=== PATIENT | female | born 2000 | race African-American/Black ===

== ENCOUNTER 2021-04-06 11:20 | Inpatient (IN) | payer OTHER, SELFPAY ==
--- NOTE | 2021-04-06 | ECG_ITS ---
Test Reason : ON ANTIPSYCHOTICS Blood Pressure : / mmHG Vent. Rate : 076 BPM Atrial Rate : 076 BPM P-R Int : 136 ms QRS Dur : 084 ms QT Int : 350 ms P-R-T Axes : -47 013 019 degrees QTc Int : 393 ms Unusual P axis, possible ectopic atrial rhythm Abnormal ECG No previous ECGs available Referred By: Louis Ohara Electronically Signed By:Edward Malhotra
--- NOTE | ~2021-04-06 | XR_ITS ---
EXAMINATION: XR ABDOMEN KUB CLINICAL INDICATION: Constipation COMPARISON: None TECHNIQUE: AP view of the abdomen. FINDINGS: The bowel gas pattern is normal with no evidence of ileus or obstruction. No unusual soft tissue calcifications are noted. The bones are unremarkable. There is moderate stool burden seen within the ascending and transverse colon as well as within the rectum. Psoas margins are intact. XR/XR KUB IMPRESSION: Moderate stool burden with no evidence of ileus or obstruction.
[2021-04-06 12:21] VITALS: BP 129/80; PULSE 84; RESP 18; TEMP 36.4; O2SAT 97
[2021-04-06 13:33] LABS: HCG Quantitative < 2 mIU/mL
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
[2021-04-06 18:00] VITALS: BP 123/82; PULSE 96; TEMP 36.6; O2SAT 100
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
[2021-04-07 06:00] VITALS: BP 122/68; PULSE 77; RESP 16; TEMP 36.2; O2SAT 100
[2021-04-07 08:13] LABS: MANUAL DIFF FLAG NO
[2021-04-07 08:18] LABS: Basophils Absolute Auto 0.1 X10*3/uL (0.0-0.2); Basophils Percent Auto 0.7 % (0-2); Eosinophils Absolute Auto 0.2 X10*3/uL (0.0-0.4); Eosinophils Percent Auto 1.7 % (0-4); Hematocrit 40.1 % (37-47); Hemoglobin 13.4 g/dl (12.0-16.0); Imm Gran Abs Auto 0.03 X10*3/uL (0.00-0.03); Imm Gran Pct Auto 0.3 % (0.0-0.4); Lymphocytes Absolute Auto 2.2 X10*3/uL (1.2-4.9); Lymphocytes Percent Auto 24.5 % (20-40); Mean Corpuscular HGB Conc 33.4 g/dl (31.0-35.0); Mean Corpuscular Hemoglobin 30.9 pg (27.0-33.0); Mean Corpuscular Volume 92.6 fL (80-98); Mean Platelet Volume 10.6 fL (9.4-12.3); Monocytes Absolute Auto 0.6 X10*3/uL (0.1-1.2); Monocytes Percent Auto 7.1 % (2-11); Neutrophils Absolute Auto 5.9 X10*3/uL (2.0-8.3); Neutrophils Percent Auto 65.7 % (45-73); Platelet Count 278 X10*3/uL (160-400); Red Blood Count 4.33 X10*6/uL (4.20-5.50); Red Cell Distribution Width 11.7 % (11.0-16.0)
[2021-04-07 08:46] LABS: Alanine Aminotransferase 7 U/L (0-31); Albumin Level 4.7 g/dL (3.5-5.0); Alkaline Phosphatase 78 U/L (39-117); Anion Gap 12 (12-20); Aspartate Amino Transferase 11 U/L (5-31); Bilirubin Total 0.6 mg/dL (0.0-1.0); Blood Urea Nitrogen 7 mg/dL (9-16); Calcium 10.2 mg/dL (8.4-10.2); Carbon Dioxide 26 mmol/L (22-29); Chloride 105 mmol/L (96-108); Cholesterol 167 mg/dL; Estimated Glomerular Filt Rate > 60; Glucose Fasting 95 mg/dL (60-99); HDL Cholesterol 42 mg/dL; LDL Cholesterol Calculated 117 mg/dl; Potassium 4.2 mmol/L (3.3-5.1); Sodium 139 mmol/L (135-145); Total Protein 8.3 g/dL (6.5-8.0); Triglycerides 42 mg/dL
[2021-04-07 09:09] LABS: Free T4 (Free Thyroxine) 1.28 ng/dL (0.71-1.85); Thyroid Stimulating Hormone 1.35 uIU/mL (0.32-4.0)
--- NOTE | 2021-04-07 12:04 | P.PNPSI_ITS ---
Subjective Subjective Date of Service: 04/07/21 Reason For Visit: Paranoia Agitation Interim History: pt amenable to come to interview room. insists on leaving, alleges MD is misrepresenting her rights when she is informed about need for 3- day notice. suggests she would benefit from medication for paranoia. pt fixated on issue of discharge and ultimately unilaterally ends the interview by walking out of the room and not returning. per staff, is not endorsing SI/HI, but does have delusions. today reported AH of a mother who was . slept well overnight. Mental Status Exam Mental Status Exam Narrative: appropriately dressed and groomed. not cooperative with interview. PMA of standing during interview and then summarily walking out. speech rapid, loud, terse and decr in amount. thoughts focused on discharge and with either inaccurate or delusional recall of information presented to her. affect labile and hyper-intense. no SI/HI/AVH expressed. Diagnostics Vital Signs (24Hr): Vital Signs - 24 hr 04/06/21 12:21 04/06/21 18:00 04/07/21 06:00 Temperature 97.5 F 97.9 F 97.2 F Pulse Rate 84 96 77 Respiratory Rate 18 16 Blood Pressure 129/80 123/82 122/68 Pulse Oximetry 97 100 100 Labs Results: 04/07/21 08:09 04/07/21 08:09 Labs: Laboratory Results - last 48 hr 04/06/21 04/07/21 04/07/21 12:43 08:09 08:09 WBC 9.0 RBC 4.33 Hgb 13.4 Hct 40.1 MCV 92.6 MCH 30.9 MCHC 33.4 RDW 11.7 Plt Count 278 MPV 10.6 Immature Gran % (Auto) 0.3 Neut % (Auto) 65.7 Lymph % (Auto) 24.5 [place] % (Auto) 7.1 Eos % (Auto) 1.7 Baso % (Auto) 0.7 Lymph # (Auto) 2.2 [place] # (Auto) 0.6 Eos # (Auto) 0.2 Baso # (Auto) 0.1 Abs Immat Gran (auto) 0.03 Absolute Neuts (auto) 5.9 Absolute Nucleated RBC 0.000 Nucleated RBC % (auto) 0.0 Sodium 139 Potassium 4.2 Chloride 105 Carbon Dioxide 26 Anion Gap 12 BUN 7 L Creatinine 0.71 Estim Creat Clear Calc TNP Estimated GFR > 60 Fasting Glucose 95 Calcium 10.2 Total Bilirubin 0.6 AST 11 ALT 7 Alkaline Phosphatase 78 Total Protein 8.3 H Albumin 4.7 Triglycerides 42 Cholesterol 167 LDL Cholesterol, Calc 117 HDL Cholesterol 42 TSH 1.35 Free T4 1.28 Beta HCG, Quant < 2 Medications Medications Current Medications Generic Name Dose Route Start Last Admin Trade Name Freq PRN Reason Stop Dose Admin Acetaminophen 650 mg 04/06/21 12:00 Acetaminophen 325 Mg Tablet PO Q6H PRN Headache/Pain Mild Scale (1-3) Al Hydroxide/Mg Hydroxide 30 ml 04/06/21 12:00 Magnesium Hydrox/Alum Hydrox 30 Ml Oral.Susp PO Q6H PRN Heartburn/Nausea Aripiprazole 5 mg 04/07/21 21:00 Aripiprazole 5 Mg Tablet PO BEDTIME LOBO Hydroxyzine HCl 25 mg 04/06/21 12:00 Hydroxyzine Hcl 25 Mg Tablet PO BEDTIME PRN Anxiety Magnesium Hydroxide 30 ml 04/06/21 12:00 Milk Of Magnesia 30 Ml Oral.Susp PO DAILY PRN Constipation Risperidone 0.5 mg 04/06/21 12:16 Risperidone 0.5 Mg Tablet PO Q4H PRN Psychosis Trazodone HCl 50 mg 04/06/21 12:00 Trazodone Hcl 50 Mg Tablet PO BEDTIME PRN Insomnia Allergies Allergies Allergy/AdvReac Type Severity Reaction Status Date / Time No Known Allergies Allergy Unverified 05/20/20 19:53 [No Known Allergies*] Assessment & Plan Assessment & Plan (1) Psychotic disorder with hallucinations: Status: Acute Code(s): F06.0 - Psychotic disorder with hallucinations due to known physiological condition Assessment and Plan: trial of abilify, if pt willing to take. risperidone PRNs prescribed. (2) Post traumatic stress disorder (PTSD): Status: Acute Code(s): F43.10 - Post-traumatic stress disorder, unspecified Assessment and Plan: as for psychosis, presently. once no longer psychotic may be able to collect Hx and address PTSD from a more informed perspective. Assessment and Plan: Patient appears to have had panic acute psychotic episode unclear what her baseline as patient has been psychiatrically hospitalized previously and I did unable to give a clear history at this time. Reportedly the patient's more recent baseline had been more stable unclear what her cognitive and psychiatric baseline is. She has not recently been on psychiatric medications she states she does admit to chronic flashbacks nightmares. Was unable to give a medication history need to clarify patient's history was there recent trauma that trigger psychotic episode episode question psychotic depression question bi polar disorder with psychotic features. Greater than 50% of the session was spent on counseling and/or coordination of care Reason for contiued inpatient stay Substantial Risk for: inability to function and rapid decompensation
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
[2021-04-07 18:30] VITALS: BP 155/92; PULSE 84; RESP 16; TEMP 36.8; O2SAT 97
[2021-04-08 08:00] VITALS: BP 122/78; PULSE 76; RESP 18; TEMP 533.3; TEMP 992; O2SAT 99
--- NOTE | 2021-04-08 13:20 | HO.PSYCHPN ---
Subjective Subjective Date of Service: 04/08/21 Reason For Visit: Paranoia Agitation Interim History: pt was found in her room late morning. she was calm and cooperative in discussion, but she adamantly denied the need for medication or hospitalization. MD highly encouraged her to take medication, explaining her recent paranoia Hx and that per collateral from her mother she is not herself. pt did not appear moved by MDs suggestions or observations. per staff, pt had episode of yelling, agitation yesterday afternoon. head-banging around 5:30 pm. calling police, pounding on unit doors. threatening to have staff arrested. refusing medication. parents came to pick her up as that is what she had told them was happening. no other notable behaviors, asking for discharge. Mental Status Exam Mental Status Exam Narrative: appropriately dressed and groomed. superficially cooperative with interview. no PMA/PMR. speech rapid, nml loudness. terse and decr in amount. thoughts focused on discharge and her perception she does not need psychiatric medication. affect non-labile and hyper-intense. no SI/HI/AVH expressed. Diagnostics Vital Signs (24Hr): Vital Signs - 24 hr 04/07/21 18:30 04/08/21 08:00 Temperature 98.3 F 992 F H Pulse Rate 84 76 Respiratory Rate 16 18 Blood Pressure 155/92 H 122/78 Pulse Oximetry 97 99 Labs Results: 04/07/21 08:09 04/07/21 08:09 Labs: Laboratory Results - last 48 hr 04/06/21 04/07/21 04/07/21 12:43 08:09 08:09 WBC 9.0 RBC 4.33 Hgb 13.4 Hct 40.1 MCV 92.6 MCH 30.9 MCHC 33.4 RDW 11.7 Plt Count 278 MPV 10.6 Immature Gran % (Auto) 0.3 Neut % (Auto) 65.7 Lymph % (Auto) 24.5 [place] % (Auto) 7.1 Eos % (Auto) 1.7 Baso % (Auto) 0.7 Lymph # (Auto) 2.2 [place] # (Auto) 0.6 Eos # (Auto) 0.2 Baso # (Auto) 0.1 Abs Immat Gran (auto) 0.03 Absolute Neuts (auto) 5.9 Absolute Nucleated RBC 0.000 Nucleated RBC % (auto) 0.0 Sodium 139 Potassium 4.2 Chloride 105 Carbon Dioxide 26 Anion Gap 12 BUN 7 L Creatinine 0.71 Estim Creat Clear Calc TNP Estimated GFR > 60 Fasting Glucose 95 Calcium 10.2 Total Bilirubin 0.6 AST 11 ALT 7 Alkaline Phosphatase 78 Total Protein 8.3 H Albumin 4.7 Triglycerides 42 Cholesterol 167 LDL Cholesterol, Calc 117 HDL Cholesterol 42 TSH 1.35 Free T4 1.28 Beta HCG, Quant < 2 Medications Medications Current Medications Generic Name Dose Route Start Last Admin Trade Name Freq PRN Reason Stop Dose Admin Acetaminophen 650 mg 04/06/21 12:00 Acetaminophen 325 Mg Tablet PO Q6H PRN Headache/Pain Mild Scale (1-3) Al Hydroxide/Mg Hydroxide 30 ml 04/06/21 12:00 Magnesium Hydrox/Alum Hydrox 30 Ml Oral.Susp PO Q6H PRN Heartburn/Nausea Aripiprazole 5 mg 04/07/21 21:00 04/07/21 20:59 Aripiprazole 5 Mg Tablet PO Not Given BEDTIME LOBO Hydroxyzine HCl 25 mg 04/06/21 12:00 Hydroxyzine Hcl 25 Mg Tablet PO BEDTIME PRN Anxiety Magnesium Hydroxide 30 ml 04/06/21 12:00 Milk Of Magnesia 30 Ml Oral.Susp PO DAILY PRN Constipation Risperidone 0.5 mg 04/06/21 12:16 Risperidone 0.5 Mg Tablet PO Q4H PRN Psychosis Trazodone HCl 50 mg 04/06/21 12:00 Trazodone Hcl 50 Mg Tablet PO BEDTIME PRN Insomnia Allergies Allergies Allergy/AdvReac Type Severity Reaction Status Date / Time No Known Allergies Allergy Unverified 05/20/20 19:53 [No Known Allergies*] Assessment & Plan Assessment & Plan (1) Psychotic disorder with hallucinations: Status: Acute Code(s): F06.0 - Psychotic disorder with hallucinations due to known physiological condition Assessment and Plan: trial of abilify, if pt willing to take.? risperidone PRNs prescribed. (2) Post traumatic stress disorder (PTSD): Status: Acute Code(s): F43.10 - Post-traumatic stress disorder, unspecified Assessment and Plan: as for psychosis, presently.? once no longer psychotic may be able to collect Hx and address PTSD from a more informed perspective. Greater than 50% of the session was spent on counseling and/or coordination of care Reason for contiued inpatient stay Substantial Risk for: rapid decompensation
[2021-04-08 18:00] VITALS: BP 135/82; PULSE 78; TEMP 36.6; O2SAT 100
[2021-04-08] MEDS: risperiDONE 0.5 MG TABLET PO (21:51)
[2021-04-09 08:00] VITALS: BP 124/85; PULSE 88; RESP 16; TEMP 36.1; O2SAT 99
--- NOTE | 2021-04-09 14:51 | HO.PSYCHPN ---
Subjective Subjective Date of Service: 04/09/21 Reason For Visit: Paranoia Agitation Interim History: found found lying in bed awake mid-morning. no questions or complaints. states she took risperidone last night to help her fall asleep. offers to schedule her risperidone at bedtime for that purpose and she agrees. per staff, pt is brighter and more clear. still paranoid and delusional, however. slept well overnight. took risperidone PRN at HS. Mental Status Exam Mental Status Exam Narrative: appropriately dressed and groomed. cooperative with interview. no PMA/PMR. speech rapid, nml loudness. terse and decr in amount. thoughts linear and logical. affect non-labile and normo-intense. no SI/HI/AVH expressed. Diagnostics Vital Signs (24Hr): Vital Signs - 24 hr 04/08/21 18:00 04/09/21 08:00 Temperature 98 F 97 F Pulse Rate 78 88 Respiratory Rate 16 Blood Pressure 135/82 124/85 Pulse Oximetry 100 99 Labs Results: 04/07/21 08:09 04/07/21 08:09 Medications Medications Current Medications Generic Name Dose Route Start Last Admin Trade Name Freq PRN Reason Stop Dose Admin Acetaminophen 650 mg 04/06/21 12:00 Acetaminophen 325 Mg Tablet PO Q6H PRN Headache/Pain Mild Scale (1-3) Al Hydroxide/Mg Hydroxide 30 ml 04/06/21 12:00 Magnesium Hydrox/Alum Hydrox 30 Ml Oral.Susp PO Q6H PRN Heartburn/Nausea Aripiprazole 5 mg 04/07/21 21:00 04/08/21 22:45 Aripiprazole 5 Mg Tablet PO Not Given BEDTIME LOBO Hydroxyzine HCl 25 mg 04/06/21 12:00 Hydroxyzine Hcl 25 Mg Tablet PO BEDTIME PRN Anxiety Magnesium Hydroxide 30 ml 04/06/21 12:00 Milk Of Magnesia 30 Ml Oral.Susp PO DAILY PRN Constipation Melatonin 6 mg 04/08/21 22:43 Melatonin 3 Mg Tablet PO BEDTIME PRN Sleep Risperidone 0.5 mg 04/06/21 12:16 04/08/21 21:51 Risperidone 0.5 Mg Tablet PO 0.5 mg Q4H PRN Administration Psychosis Trazodone HCl 50 mg 04/06/21 12:00 Trazodone Hcl 50 Mg Tablet PO BEDTIME PRN Insomnia Allergies Allergies Allergy/AdvReac Type Severity Reaction Status Date / Time No Known Allergies Allergy Unverified 05/20/20 19:53 [No Known Allergies*] Assessment & Plan Assessment & Plan (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 risperidone PRNs prescribed at admission but pt did not take until 04/08 @HS. scheduled dose of 1 mg prescribed for HS as of 04/09.. (2) Post traumatic stress disorder (PTSD): Status: Acute Code(s): F43.10 - Post-traumatic stress disorder, unspecified Assessment and Plan: as for psychosis, presently.? once no longer psychotic may be able to collect Hx and address PTSD from a more informed perspective. Greater than 50% of the session was spent on counseling and/or coordination of care Reason for contiued inpatient stay Substantial Risk for: inability to function and rapid decompensation
[2021-04-09 20:10] VITALS: BP 140/75; PULSE 84; TEMP 36.2; O2SAT 100
[2021-04-09] MEDS: Melatonin 3 MG TABLET 6 MG PO (21:52)
[2021-04-09] MEDS: risperiDONE 1 MG TABLET PO (21:57)
[2021-04-10 08:10] VITALS: BP 124/74; PULSE 91; RESP 16; TEMP 36.4; O2SAT 99
--- NOTE | 2021-04-10 14:14 | HO.PSYCHPN ---
Subjective Subjective Date of Service: 04/10/21 Reason For Visit: Paranoia Agitation Interim History: pt found seated in milieu, calm and cooperative. states she is fine and her mod is 5 out of 10. states she slept well. she has no questions or concerns for MD. MD notes she took risperidone last night, which she acknowledges, stating she also took melatonin. MD [facility], and she agrees. per staff, pt paranoid, suspicious of staff. took risperidone at HS last night. Mental Status Exam Mental Status Exam Narrative: appropriately dressed and groomed. cooperative with interview. no PMA/PMR. speech soft, mumbled. terse and decr in amount. thoughts linear and logical. affect non-labile and normo-intense. mood 5 out of 10. no SI/HI/AVH expressed. Diagnostics Vital Signs (24Hr): Vital Signs - 24 hr 04/09/21 20:10 04/10/21 08:10 Temperature 97.2 F 97.6 F Pulse Rate 84 91 Respiratory Rate 16 Blood Pressure 140/75 H 124/74 Pulse Oximetry 100 99 Labs Results: 04/07/21 08:09 04/07/21 08:09 Medications Medications Current Medications Generic Name Dose Route Start Last Admin Trade Name Freq PRN Reason Stop Dose Admin Acetaminophen 650 mg 04/06/21 12:00 Acetaminophen 325 Mg Tablet PO Q6H PRN Headache/Pain Mild Scale (1-3) Al Hydroxide/Mg Hydroxide 30 ml 04/06/21 12:00 Magnesium Hydrox/Alum Hydrox 30 Ml Oral.Susp PO Q6H PRN Heartburn/Nausea Hydroxyzine HCl 25 mg 04/06/21 12:00 Hydroxyzine Hcl 25 Mg Tablet PO BEDTIME PRN Anxiety Magnesium Hydroxide 30 ml 04/06/21 12:00 Milk Of Magnesia 30 Ml Oral.Susp PO DAILY PRN Constipation Melatonin 6 mg 04/08/21 22:43 04/09/21 21:52 Melatonin 3 Mg Tablet PO 6 mg BEDTIME PRN Administration Sleep Risperidone 0.5 mg 04/06/21 12:16 04/08/21 21:51 Risperidone 0.5 Mg Tablet PO 0.5 mg Q4H PRN Administration Psychosis Risperidone 1 mg 04/09/21 21:00 04/09/21 21:57 Risperidone 1 Mg Tablet PO 1 mg BEDTIME LOBO Administration Trazodone HCl 50 mg 04/06/21 12:00 Trazodone Hcl 50 Mg Tablet PO BEDTIME PRN Insomnia Allergies Allergies Allergy/AdvReac Type Severity Reaction Status Date / Time No Known Allergies Allergy Unverified 05/20/20 19:53 [No Known Allergies*] Assessment & Plan Assessment & Plan (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 risperidone PRNs prescribed at admission but pt did not take until 04/08 @[facility]. scheduled dose of 1 mg prescribed for HS as of 04/09, which pt took. abilify DCed 04/10 as pt had been refusing ever since it was offered first. (2) Post traumatic stress disorder (PTSD): Status: Acute Code(s): F43.10 - Post-traumatic stress disorder, unspecified Assessment and Plan: as for psychosis, presently.? once no longer psychotic may be able to collect Hx and address PTSD from a more informed perspective. Greater than 50% of the session was spent on counseling and/or coordination of care Reason for contiued inpatient stay Substantial Risk for: inability to function and rapid decompensation
[2021-04-10 20:25] VITALS: BP 140/80; PULSE 75; RESP 18; TEMP 36.7; O2SAT 93
[2021-04-10] MEDS: Melatonin 3 MG TABLET 6 MG PO (20:30)
[2021-04-10] MEDS: risperiDONE 1 MG TABLET PO (20:30)
[2021-04-11 06:00] VITALS: BP 137/69; PULSE 112; RESP 18; TEMP 36.8; O2SAT 98
--- NOTE | 2021-04-11 10:00 | HO.PSYCHPN ---
Subjective Subjective Date of Service: 04/12/21 Reason For Visit: Paranoia Agitation Interim History: Pt very anxious and overwhelmed, reports she is in labor, having strong contractions, very upset about having implanon on left arm for contraception while being - despite telling her tests are negative. Pt reports having several miscarriages while in the unit. She reports she has seen fetus coming out of her feces. she reports slightly better sleep with risperidone. Medication Compliance: Intermittent Side effects from medications: No Review of Systems Review of Systems Yes all other systems are reviewed and are negative Diagnostics Vital Signs (24Hr): Vital Signs - 24 hr 04/11/21 18:00 04/12/21 08:00 Temperature 97.4 F 97.2 F Pulse Rate 110 H 105 H Respiratory Rate 16 20 Blood Pressure 125/82 124/69 Pulse Oximetry 100 100 Labs Results: 04/07/21 08:09 04/07/21 08:09 Medications Medications Current Medications Generic Name Dose Route Start Last Admin Trade Name Freq PRN Reason Stop Dose Admin Acetaminophen 650 mg 04/06/21 12:00 Acetaminophen 325 Mg Tablet PO Q6H PRN Headache/Pain Mild Scale (1-3) Al Hydroxide/Mg Hydroxide 30 ml 04/06/21 12:00 Magnesium Hydrox/Alum Hydrox 30 Ml Oral.Susp PO Q6H PRN Heartburn/Nausea Hydroxyzine HCl 25 mg 04/06/21 12:00 Hydroxyzine Hcl 25 Mg Tablet PO BEDTIME PRN Anxiety Magnesium Hydroxide 30 ml 04/06/21 12:00 Milk Of Magnesia 30 Ml Oral.Susp PO DAILY PRN Constipation Melatonin 6 mg 04/08/21 22:43 04/11/21 21:25 Melatonin 3 Mg Tablet PO 6 mg BEDTIME PRN Administration Sleep Risperidone 0.5 mg 04/06/21 12:16 04/08/21 21:51 Risperidone 0.5 Mg Tablet PO 0.5 mg Q4H PRN Administration Psychosis Risperidone 1 mg 04/09/21 21:00 04/11/21 21:25 Risperidone 1 Mg Tablet PO 1 mg BEDTIME LOBO Administration Trazodone HCl 50 mg 04/06/21 12:00 Trazodone Hcl 50 Mg Tablet PO BEDTIME PRN Insomnia Allergies Allergies Allergy/AdvReac Type Severity Reaction Status Date / Time No Known Allergies Allergy Unverified 05/20/20 19:53 [No Known Allergies*] Assessment & Plan Assessment & Plan (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 risperidone PRNs prescribed at admission but pt did not take until 04/08 @[facility]. scheduled dose of 1 mg prescribed for HS as of 04/09, which pt took. abilify DCed 04/10 as pt had been refusing ever since it was offered first. 1. will increase risperidone to 2mg po qhs. (2) Post traumatic stress disorder (PTSD): Status: Acute Code(s): F43.10 - Post-traumatic stress disorder, unspecified Assessment and Plan: as for psychosis, presently.? once no longer psychotic may be able to collect Hx and address PTSD from a more informed perspective. Greater than 50% of the session was spent on counseling and/or coordination of care Reason for contiued inpatient stay Substantial Risk for: inability to function
[2021-04-11 18:00] VITALS: BP 125/82; PULSE 110; RESP 16; TEMP 36.3; O2SAT 100
[2021-04-11] MEDS: risperiDONE 1 MG TABLET PO (21:25)
[2021-04-11] MEDS: Melatonin 3 MG TABLET 6 MG PO (21:25)
[2021-04-12 08:00] VITALS: BP 124/69; PULSE 105; RESP 20; TEMP 36.2; O2SAT 100
--- NOTE | 2021-04-12 09:44 | HO.PSYCHPN ---
Subjective Subjective Date of Service: 04/15/21 Reason For Visit: Paranoia Agitation Subjective Notes: Conditional Voluntary Interim History: Pt continues to present as very anxious and overwhelmed, reports she is in labor, having strong contractions, very upset about having implanon on left arm for contraception while being - despite telling her tests are negative. Pt did agree to retract 3 day notice as well as to continue taking risperidone at bedtime. Pt reports having several miscarriages while in the unit. She reports she has seen fetus coming out of her feces. she reports slightly better sleep with risperidone. Medication Compliance: Yes Side effects from medications: No Review of Systems Review of Systems Yes all other systems are reviewed and are negative Diagnostics Vital Signs (24Hr): Vital Signs - 24 hr 04/14/21 18:00 Temperature 98.3 F Pulse Rate 87 Respiratory Rate 16 Blood Pressure 111/61 Pulse Oximetry 100 Labs Results: 04/07/21 08:09 04/07/21 08:09 Imaging Radiology Impressions: ITS Impressions KUB X-Ray 04/14/21 16:38 IMPRESSION: Moderate stool burden with no evidence of ileus or obstruction. Medications Medications Current Medications Generic Name Dose Route Start Last Admin Trade Name Freq PRN Reason Stop Dose Admin Acetaminophen 650 mg 04/06/21 12:00 04/12/21 21:33 Acetaminophen 325 Mg Tablet PO 650 mg Q6H PRN Administration Headache/Pain Mild Scale (1-3) Al Hydroxide/Mg Hydroxide 30 ml 04/06/21 12:00 Magnesium Hydrox/Alum Hydrox 30 Ml Oral.Susp PO Q6H PRN Heartburn/Nausea Hydroxyzine HCl 25 mg 04/06/21 12:00 Hydroxyzine Hcl 25 Mg Tablet PO BEDTIME PRN Anxiety Magnesium Hydroxide 30 ml 04/06/21 12:00 04/13/21 15:03 Milk Of Magnesia 30 Ml Oral.Susp PO 30 ml DAILY PRN Administration Constipation Melatonin 6 mg 04/08/21 22:43 04/11/21 21:25 Melatonin 3 Mg Tablet PO 6 mg BEDTIME PRN Administration Sleep Risperidone 0.5 mg 04/06/21 12:16 04/08/21 21:51 Risperidone 0.5 Mg Tablet PO 0.5 mg Q4H PRN Administration Psychosis Risperidone 2 mg 04/12/21 21:00 04/14/21 20:58 Risperidone 2 Mg Tablet PO 2 mg BEDTIME LOBO Administration Trazodone HCl 50 mg 04/06/21 12:00 Trazodone Hcl 50 Mg Tablet PO BEDTIME PRN Insomnia Allergies Allergies Allergy/AdvReac Type Severity Reaction Status Date / Time No Known Allergies Allergy Unverified 05/20/20 19:53 [No Known Allergies*] Assessment & Plan Assessment & Plan (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 risperidone PRNs prescribed at admission but pt did not take until 04/08 @[facility]. scheduled dose of 1 mg prescribed for HS as of 04/09, which pt took. abilify DCed 04/10 as pt had been refusing ever since it was offered first. 1. will increase risperidone to 2mg po qhs. (2) Post traumatic stress disorder (PTSD): Status: Acute Code(s): F43.10 - Post-traumatic stress disorder, unspecified Assessment and Plan: as for psychosis, presently.? once no longer psychotic may be able to collect Hx and address PTSD from a more informed perspective. Greater than 50% of the session was spent on counseling and/or coordination of care Reason for contiued inpatient stay Substantial Risk for: inability to function
[2021-04-12] MEDS: risperiDONE 2 MG TABLET PO (21:30)
[2021-04-12] MEDS: Acetaminophen 325 MG TABLET 650 MG PO (21:33)
[2021-04-12 22:12] VITALS: BP 131/63; PULSE 96; TEMP 36.8; O2SAT 96
--- NOTE | 2021-04-13 01:05 | PC.NURSE ---
RETRACTED 3 DAY NOTICE ON 04/12/21
--- NOTE | 2021-04-13 09:51 | P.PNPSI_ITS ---
Subjective Subjective Date of Service: 04/15/21 Reason For Visit: Paranoia Agitation Interim History: Pt preoccupied with , feels she is not being asked. 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 She does not believe results of tests done in hospital. She has been more visible in unit. Pt reports having several miscarriages while in the unit. She reports she has seen fetus coming out of her feces. she reports slightly better sleep with risperidone. Review of Systems Review of Systems Yes all other systems are reviewed and are negative Mental Status Exam Mental Status Exam Narrative: Appearance: casually groomed, fair hygiene in NAD Behavior:guarded, restless psychomotor:restless Speech:clear, some delayed response at times, monotone, spontaneous Thought process:goal oriented on taking off implanon because she is Thought content:delusions of being , having miscarriages Mood: okay Affect: constricted SI:denies HI:denies VH/AH:VH of seeing fetus Delusions:delusion about being Memory/cog: alert, impaired secondary to psychiatric symptoms. Diagnostics Vital Signs (24Hr): Vital Signs - 24 hr 04/14/21 18:00 Temperature 98.3 F Pulse Rate 87 Respiratory Rate 16 Blood Pressure 111/61 Pulse Oximetry 100 Labs Results: 04/07/21 08:09 04/07/21 08:09 Imaging Radiology Impressions: ITS Impressions KUB X-Ray 04/14/21 16:38 IMPRESSION: Moderate stool burden with no evidence of ileus or obstruction. Medications Medications Current Medications Generic Name Dose Route Start Last Admin Trade Name Gilbertq PRN Reason Stop Dose Admin Acetaminophen 650 mg 04/06/21 12:00 04/12/21 21:33 Acetaminophen 325 Mg Tablet PO 650 mg Q6H PRN Administration Headache/Pain Mild Scale (1-3) Al Hydroxide/Mg Hydroxide 30 ml 04/06/21 12:00 Magnesium Hydrox/Alum Hydrox 30 Ml Oral.Susp PO Q6H PRN Heartburn/Nausea Hydroxyzine HCl 25 mg 04/06/21 12:00 Hydroxyzine Hcl 25 Mg Tablet PO BEDTIME PRN Anxiety Magnesium Hydroxide 30 ml 04/06/21 12:00 04/13/21 15:03 Milk Of Magnesia 30 Ml Oral.Susp PO 30 ml DAILY PRN Administration Constipation Melatonin 6 mg 04/08/21 22:43 04/11/21 21:25 Melatonin 3 Mg Tablet PO 6 mg BEDTIME PRN Administration Sleep Risperidone 0.5 mg 04/06/21 12:16 04/08/21 21:51 Risperidone 0.5 Mg Tablet PO 0.5 mg Q4H PRN Administration Psychosis Risperidone 2 mg 04/12/21 21:00 04/14/21 20:58 Risperidone 2 Mg Tablet PO 2 mg BEDTIME LOBO Administration Trazodone HCl 50 mg 04/06/21 12:00 Trazodone Hcl 50 Mg Tablet PO BEDTIME PRN Insomnia Allergies Allergies Allergy/AdvReac Type Severity Reaction Status Date / Time No Known Allergies Allergy Unverified 05/20/20 19:53 [No Known Allergies*] Assessment & Plan Assessment & Plan (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 risperidone PRNs prescribed at admission but pt did not take until 04/08 @[facility]. scheduled dose of 1 mg prescribed for HS as of 04/09, which pt took. abilify DCed 04/10 as pt had been refusing ever since it was offered first. 1. Continue risperidone to 2mg po qhs. (2) Post traumatic stress disorder (PTSD): Status: Acute Code(s): F43.10 - Post-traumatic stress disorder, unspecified Assessment and Plan: as for psychosis, presently.? once no longer psychotic may be able to collect Hx and address PTSD from a more informed perspective. Greater than 50% of the session was spent on counseling and/or coordination of care Reason for contiued inpatient stay Substantial Risk for: inability to function
[2021-04-13 12:12] VITALS: BP 123/79; PULSE 101; RESP 16; TEMP 36.3; O2SAT 96
[2021-04-13] MEDS: Milk of Magnesia 30 ML ORAL.SUSP PO (15:03)
[2021-04-13] MEDS: risperiDONE 2 MG TABLET PO (21:45)
[2021-04-13 21:49] VITALS: BP 114/58; PULSE 87; TEMP 36.2; O2SAT 100
[2021-04-14 08:35] VITALS: BP 128/69; PULSE 78; RESP 14; TEMP 36.7; O2SAT 99
--- NOTE | 2021-04-14 09:46 | HO.PSYCHPN ---
Subjective Subjective Date of Service: 04/15/21 Reason For Visit: Paranoia Agitation Subjective Notes: Conditional Voluntary Interim History: Pt slightly calmer today. She continues to ask this FILTER PRESS TENDER HEAD that contraception (implanon) needs to be removed as she is . She does not believe results of tests done in hospital. She has been more visible in unit. Pt reports having several miscarriages while in the unit. She reports she has seen fetus coming out of her feces. she reports slightly better sleep with risperidone. Medication Compliance: Yes Side effects from medications: Yes Attending Groups: Intermittent Review of Systems Review of Systems Yes all other systems are reviewed and are negative Mental Status Exam Mental Status Exam Narrative: Appearance: casually groomed, fair hygiene in NAD Behavior:guarded, restless psychomotor:restless Speech:clear, some delayed response at times, monotone, spontaneous Thought process:goal oriented on taking off implanon because she is Thought content:delusions of being , having miscarriages Mood: okay Affect: constricted SI:denies HI:denies VH/AH:VH of seeing fetus Delusions:delusion about being Memory/cog: alert, impaired secondary to psychiatric symptoms. Diagnostics Vital Signs (24Hr): Vital Signs - 24 hr 04/14/21 18:00 Temperature 98.3 F Pulse Rate 87 Respiratory Rate 16 Blood Pressure 111/61 Pulse Oximetry 100 Labs Results: 04/07/21 08:09 04/07/21 08:09 Imaging Radiology Impressions: ITS Impressions KUB X-Ray 04/14/21 16:38 IMPRESSION: Moderate stool burden with no evidence of ileus or obstruction. Medications Medications Current Medications Generic Name Dose Route Start Last Admin Trade Name Gilbertq PRN Reason Stop Dose Admin Acetaminophen 650 mg 04/06/21 12:00 04/12/21 21:33 Acetaminophen 325 Mg Tablet PO 650 mg Q6H PRN Administration Headache/Pain Mild Scale (1-3) Al Hydroxide/Mg Hydroxide 30 ml 04/06/21 12:00 Magnesium Hydrox/Alum Hydrox 30 Ml Oral.Susp PO Q6H PRN Heartburn/Nausea Hydroxyzine HCl 25 mg 04/06/21 12:00 Hydroxyzine Hcl 25 Mg Tablet PO BEDTIME PRN Anxiety Magnesium Hydroxide 30 ml 04/06/21 12:00 04/13/21 15:03 Milk Of Magnesia 30 Ml Oral.Susp PO 30 ml DAILY PRN Administration Constipation Melatonin 6 mg 04/08/21 22:43 04/11/21 21:25 Melatonin 3 Mg Tablet PO 6 mg BEDTIME PRN Administration Sleep Risperidone 0.5 mg 04/06/21 12:16 04/08/21 21:51 Risperidone 0.5 Mg Tablet PO 0.5 mg Q4H PRN Administration Psychosis Risperidone 2 mg 04/12/21 21:00 04/14/21 20:58 Risperidone 2 Mg Tablet PO 2 mg BEDTIME LOBO Administration Trazodone HCl 50 mg 04/06/21 12:00 Trazodone Hcl 50 Mg Tablet PO BEDTIME PRN Insomnia Allergies Allergies Allergy/AdvReac Type Severity Reaction Status Date / Time No Known Allergies Allergy Unverified 05/20/20 19:53 [No Known Allergies*] Assessment & Plan Assessment & Plan (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 risperidone PRNs prescribed at admission but pt did not take until 04/08 @[facility]. scheduled dose of 1 mg prescribed for HS as of 04/09, which pt took. abilify DCed 04/10 as pt had been refusing ever since it was offered first. 1. Continue risperidone to 2mg po qhs. (2) Post traumatic stress disorder (PTSD): Status: Acute Code(s): F43.10 - Post-traumatic stress disorder, unspecified Assessment and Plan: as for psychosis, presently.? once no longer psychotic may be able to collect Hx and address PTSD from a more informed perspective. Greater than 50% of the session was spent on counseling and/or coordination of care Reason for contiued inpatient stay Substantial Risk for: inability to function
[2021-04-14 18:00] VITALS: BP 111/61; PULSE 87; RESP 16; TEMP 36.8; O2SAT 100
[2021-04-14] MEDS: risperiDONE 2 MG TABLET PO (20:58)
--- NOTE | 2021-04-15 08:26 | HO.PSYCHPN ---
Subjective Subjective Date of Service: 04/16/21 Reason For Visit: Paranoia Agitation Subjective Notes: Conditional Voluntary Interim History: Pt less preoccupied with .. 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 She does not believe results of tests done in hospital. She has been more visible in unit. She reports less contraction- KUB completed shows constipation- given mag citrate 300ml. Pt reports having several miscarriages while in the unit. She reports she has seen fetus coming out of her feces. she reports slightly better sleep and mood with risperidone. Review of Systems Review of Systems Yes all other systems are reviewed and are negative Mental Status Exam Mental Status Exam Narrative: Appearance: casually groomed, fair hygiene in NAD Behavior:guarded, restless psychomotor:restless Speech:clear, some delayed response at times, monotone, spontaneous Thought process:goal oriented on taking off implanon because she is Thought content:delusions of being , having miscarriages Mood: okay Affect: constricted SI:denies HI:denies VH/AH:VH of seeing fetus Delusions:delusion about being Memory/cog: alert, impaired secondary to psychiatric symptoms. Diagnostics Vital Signs (24Hr): Vital Signs - 24 hr 04/15/21 09:56 04/15/21 20:14 Temperature 97.8 F 97.5 F Pulse Rate 71 99 Respiratory Rate 18 Blood Pressure 136/66 142/85 H Pulse Oximetry 100 100 Labs Results: 04/07/21 08:09 04/07/21 08:09 Imaging Radiology Impressions: ITS Impressions KUB X-Ray 04/14/21 16:38 IMPRESSION: Moderate stool burden with no evidence of ileus or obstruction. Medications Medications Current Medications Generic Name Dose Route Start Last Admin Trade Name Freq PRN Reason Stop Dose Admin Acetaminophen 650 mg 04/06/21 12:00 04/12/21 21:33 Acetaminophen 325 Mg Tablet PO 650 mg Q6H PRN Administration Headache/Pain Mild Scale (1-3) Al Hydroxide/Mg Hydroxide 30 ml 04/06/21 12:00 Magnesium Hydrox/Alum Hydrox 30 Ml Oral.Susp PO Q6H PRN Heartburn/Nausea Hydroxyzine HCl 25 mg 04/06/21 12:00 Hydroxyzine Hcl 25 Mg Tablet PO BEDTIME PRN Anxiety Magnesium Hydroxide 30 ml 04/06/21 12:00 04/13/21 15:03 Milk Of Magnesia 30 Ml Oral.Susp PO 30 ml DAILY PRN Administration Constipation Melatonin 6 mg 04/08/21 22:43 04/11/21 21:25 Melatonin 3 Mg Tablet PO 6 mg BEDTIME PRN Administration Sleep Risperidone 0.5 mg 04/06/21 12:16 04/08/21 21:51 Risperidone 0.5 Mg Tablet PO 0.5 mg Q4H PRN Administration Psychosis Risperidone 3 mg 04/15/21 21:00 04/15/21 22:16 Risperidone 3 Mg Tablet PO 3 mg BEDTIME LOBO Administration Trazodone HCl 50 mg 04/06/21 12:00 Trazodone Hcl 50 Mg Tablet PO BEDTIME PRN Insomnia Allergies Allergies Allergy/AdvReac Type Severity Reaction Status Date / Time No Known Allergies Allergy Unverified 05/20/20 19:53 [No Known Allergies*] Assessment & Plan Assessment & Plan (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 risperidone PRNs prescribed at admission but pt did not take until 04/08 @HS. scheduled dose of 1 mg prescribed for HS as of 04/09, which pt took. abilify DCed 04/10 as pt had been refusing ever since it was offered first. 1. Continue risperidone to 2mg po qhs. (2) Post traumatic stress disorder (PTSD): Status: Acute Code(s): F43.10 - Post-traumatic stress disorder, unspecified Assessment and Plan: as for psychosis, presently.? once no longer psychotic may be able to collect Hx and address PTSD from a more informed perspective. Greater than 50% of the session was spent on counseling and/or coordination of care Reason for contiued inpatient stay Substantial Risk for: inability to function
[2021-04-15 09:56] VITALS: BP 136/66; PULSE 71; RESP 18; TEMP 36.6; O2SAT 100
[2021-04-15 20:14] VITALS: BP 142/85; PULSE 99; TEMP 36.4; O2SAT 100
[2021-04-15] MEDS: Magnesium Citrate 300 ML SOLUTION PO (20:25)
[2021-04-15] MEDS: risperiDONE 3 MG TABLET PO (22:16)
--- NOTE | 2021-04-16 06:31 | PC.NURSE ---
sub,itted 3 day notice om 04/15
[2021-04-16 10:20] VITALS: BP 133/67; PULSE 80; RESP 16; TEMP 37.2; O2SAT 98
[2021-04-16] MEDS: Milk of Magnesia 30 ML ORAL.SUSP PO (11:48)
--- NOTE | 2021-04-16 12:11 | P.PNPSI_ITS ---
Subjective Subjective Date of Service: 04/16/21 Reason For Visit: Paranoia Agitation Interim History: Nursing staff reported that the patient showered 3 times yesterday, she went to groups but the team has noticed thought blocking and she is perseveratvie with her delusions of been . She complained of constipation and yesterday she got Mag Citrate with no improvement. Today she reported that she is OK refused to engage on interview, very guarded. Review of Systems Acute medical concerns: No Medical Review of Systems: unchanged Mental Status Exam Mental Status Exam Patient Orientation: Person, Place, Time and Situation Level of Consciousness: Awake Patient Behavior: Appropriate Mood Description: Calm Affect Description: Constricted Patient Cognition Impaired: No Ability to Follow Directions: Good Speech Pattern: Clear Hallucinations: None Delusions: Paranoid Ideation and Bizarre Thought Process: Distracted and Evasive Thought Content: positive for Perseveration, positive for Poverty of Content and positive for Thought Blocking Judgement: Poor Diagnostics Vital Signs (24Hr): Vital Signs - 24 hr 04/15/21 20:14 04/16/21 10:20 Temperature 97.5 F 98.9 F Pulse Rate 99 80 Respiratory Rate 16 Blood Pressure 142/85 H 133/67 Pulse Oximetry 100 98 Labs Results: 04/07/21 08:09 04/07/21 08:09 Imaging Radiology Impressions: ITS Impressions KUB X-Ray 04/14/21 16:38 IMPRESSION: Moderate stool burden with no evidence of ileus or obstruction. Medications Medications Current Medications Generic Name Dose Route Start Last Admin Trade Name Freq PRN Reason Stop Dose Admin Acetaminophen 650 mg 04/06/21 12:00 04/12/21 21:33 Acetaminophen 325 Mg Tablet PO 650 mg Q6H PRN Administration Headache/Pain Mild Scale (1-3) Al Hydroxide/Mg Hydroxide 30 ml 04/06/21 12:00 Magnesium Hydrox/Alum Hydrox 30 Ml Oral.Susp PO Q6H PRN Heartburn/Nausea Hydroxyzine HCl 25 mg 04/06/21 12:00 Hydroxyzine Hcl 25 Mg Tablet PO BEDTIME PRN Anxiety Magnesium Hydroxide 30 ml 04/06/21 12:00 04/16/21 11:48 Milk Of Magnesia 30 Ml Oral.Susp PO 30 ml DAILY PRN Administration Constipation Melatonin 6 mg 04/08/21 22:43 04/11/21 21:25 Melatonin 3 Mg Tablet PO 6 mg BEDTIME PRN Administration Sleep Risperidone 0.5 mg 04/06/21 12:16 04/08/21 21:51 Risperidone 0.5 Mg Tablet PO 0.5 mg Q4H PRN Administration Psychosis Risperidone 3 mg 04/15/21 21:00 04/15/21 22:16 Risperidone 3 Mg Tablet PO 3 mg BEDTIME LOBO Administration Trazodone HCl 50 mg 04/06/21 12:00 Trazodone Hcl 50 Mg Tablet PO BEDTIME PRN Insomnia Allergies Allergies Allergy/AdvReac Type Severity Reaction Status Date / Time No Known Allergies Allergy Unverified 05/20/20 19:53 [No Known Allergies*] Assessment & Plan Assessment & Plan (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 risperidone PRNs prescribed at admission but pt did not take until 04/08 @[facility]. scheduled dose of 1 mg prescribed for [facility] as of 04/09, which pt took. britt DCed 04/10 as pt had been refusing ever since it was offered first. 1. Continue risperidone to 2mg po qhs. (2) Post traumatic stress disorder (PTSD): Status: Acute Code(s): F43.10 - Post-traumatic stress disorder, unspecified Assessment and Plan: as for psychosis, presently.? once no longer psychotic may be able to collect Hx and address PTSD from a more informed perspective. Greater than 50% of the session was spent on counseling and/or coordination of care Reason for contiued inpatient stay Substantial Risk for: inability to function, rapid decompensation and med/psych decompensation
[2021-04-16 20:01] VITALS: BP 130/64; PULSE 87; TEMP 36.6; O2SAT 100
[2021-04-16] MEDS: risperiDONE 3 MG TABLET PO (21:38)
[2021-04-17 09:05] VITALS: BP 114/70; PULSE 100; RESP 16; TEMP 36.8; O2SAT 100
--- NOTE | 2021-04-17 11:22 | P.DS_ITS ---
DS: Providers Provider Date of Service: 04/17/21 Date of admission: 04/06/21 11:20 Date of discharge: 04/17/21 Primary care physician: Cheryl Altman MD Consults: 04/06/21 12:00 Consult to Hospitalist Routine Consulting Provider: Hospitalist Reason For Exam: ADMISSION H AND P APPEARS DELUSIONAL Attending physician on discharge: Trino Simpson DS: Diagnosis Discharge Diagnosis (1) Psychotic disorder with hallucinations: Status: Acute (2) Post traumatic stress disorder (PTSD): Status: Acute Mental Status Exam Mental Status Exam Patient Appearance: Well Grooomed (on hospital gowns) and Disheveled Patient Orientation: Person and Situation Level of Consciousness: Awake Patient Behavior: Appropriate, Cooperative and Good Eye Contact Mood Description: Calm and Appropriate Affect Description: Constricted Patient Cognition Impaired: No Ability to Follow Directions: Fair Speech Pattern: Clear Memory Description: Intact Hallucinations: None Delusions: Bizarre () Thought Process: Linear and Evasive Thought Content: positive for [place], positive for Poverty of Content and positive for Thought Blocking Judgement: Fair Judgement and Insight: Insight limited Data Imaging Diagnostic Imaging Impressions KUB X-Ray 04/14/21 16:38 IMPRESSION: Moderate stool burden with no evidence of ileus or obstruction. DS: Summary Hospital Course Hospital Course: The patient was admitted for psychotic symptoms elicited by the chronic delusions that she is and she is aborting fetus parts in her feces. She has an anticonceptive implant. She also reported disorganized thought process, poor ADL's and irritability. On admission, she was re-started on Risperdal and it was titrated up to 3 mg po qhs slowly with no side effects. As per staff, her behavior was more organized, less behavioral disturbances, no agitation but still chronically delusional about , she didn't believe the test of the hospital. I was informed by nursing staff that hte patient was scheduled for discharge on Sunday, since I didn't have any sign-out, I contacted her team prescriber and risa nix ratified that. I have met the patient only twice and most of the hospital course is based on the chart. The patient denied halluinations, suicidal or homicidal thoughts and she was pleasant on discharge assessment. Time spent discussing smoking cessation with patient: 3 to 10 minutes Status at Discharge Cognitive/behavioral status at discharge: At baseline Functional status at discharge: independent ambulation Overall status at discharge: patient is back to baseline Time Spent with Patient Time attestation: Total time spent providing and/or coordinating discharge services: Time spent: Less than 30 minutes Discharge Plan Discharge Patient Disposition: Home, Self-Care Discharge Diagnosis: Psychotic disorder Referrals: Rosendo Fonseca (psychiatry) [Other] - 04/27/21 3:20 pm (Telehealth Appointment) Kristina Damon (therapy) [Other] - 04/18/21 11:30 am (Telehealth Appointment) Cheryl Altman MD [Primary Care Provider] - 1 Week Discharge Medications: New risperidone 3 mg Tablet 3 mg PO BEDTIME 30 Days Qty: 30 RF: 0 Discharge Orders: Discharge Order (Routine); Ordered 04/17/21 Ordered By: Trino Simpson Diet: advance to usual diet Activity on Discharge: As tolerated Stand Alone Forms: Patient Portal Discharge page Care Plan Goals: Care Plan Goals were discussed and partially achieved, the patient remaisn chronically psychotic Health Concerns: None, f/u with regular PCP Plan of Treatment: Continue psychiatric treatment as an outpatient as per discharge plan Assessment: Young female with psychotic symptoms with the chronic delusion that she is , now less agitated and safe in the community.
--- NOTE | 2021-04-17 13:08 | PC.NURSE ---
Veronica is discharged to care of her mother at this time. Complete discharge instructions reviewed and she denies having any questions. She is alert and fully oriented. She continues to display thought blocking. She has not voiced any delusional thought content to this nurse today. She denies perceptual disturbance, denies thoughts of harming herself or others. She denies current depression or anxiety. She verbalizes understanding of discharge instructions including prescribed meds, crisis numbers and outpatient appointments. She denies physical complaint at present.
== END 2021-04-17 14:57 | disposition home or self-care (01) | DRG 751 ==
PROVIDERS: Admitting Provider Psychiatry & Neurology Psychiatry; PCP Internal Medicine; Visit Provider Psychiatry & Neurology Psychiatry
DX: F29 Unspecified psychosis not due to a substance or known physiological condition (principal); F43.10 Post-traumatic stress disorder, unspecified; Z79.899 Other long term (current) drug therapy
CPT/HCPCS: 36415; 74018; 80053; 80061; 84439; 84443; 84702; 85025; 93005